=== PATIENT | male | born 1990 | race Caucasian/White ===

== ENCOUNTER 2016-08-17 22:39 | Emergency (ER) | payer SELFPAY ==
[2016-08-17] MEDS ORDERED: CLINDAMYCIN 600 MG/4 ML VIAL ONE (22:56)
[2016-08-17] MEDS ORDERED: L.E.T. 3 ML SOLUTION TOPICAL ONE (23:05)
[2016-08-17] MEDS ORDERED: LIDOCAINE/EPI 1% MDV 20 ML ONE (23:05)
== END 2016-08-17 23:34 | disposition home or self-care (01) ==
LOC: ER 22:39
DX: L03.115 Cellulitis of right lower limb (principal); L02.415 Cutaneous abscess of right lower limb; F17.210 Nicotine dependence, cigarettes, uncomplicated
CPT/HCPCS: 96372

== ENCOUNTER 2016-08-19 15:19 | Emergency (ER) | payer SELFPAY ==
[2016-08-19] MEDS ORDERED: [UNRECOGNIZED DRUG - OTHER] IV ONE (17:39)
[2016-08-19] MEDS ORDERED: KETOROLAC 30 MG/ML VIAL ONE (17:39)
== END 2016-08-19 18:24 | disposition left against medical advice (07) ==
LOC: ER 15:19
DX: L03.115 Cellulitis of right lower limb (principal); F17.210 Nicotine dependence, cigarettes, uncomplicated